=== PATIENT | female | born 1945 | race Two or more races ===

== ENCOUNTER 2017-03-24 21:41 | Outpatient (CLI) | END 2017-03-24 21:42 | disposition home or self-care (01) | LOC: AMBL 21:41 | PROVIDERS: ATTEND Family Medicine | DX: M25.551 Pain in right hip (principal); W19.XXXA Unspecified fall, initial encounter ==

== ENCOUNTER 2017-10-19 19:55 | Outpatient (CLI) | END 2017-10-19 20:12 | disposition short-term general hospital (02) | LOC: AMBL 19:55 | PROVIDERS: ATTEND Emergency Medicine | DX: K92.0 Hematemesis (principal); C34.90 Malignant neoplasm of unspecified part of unspecified bronchus or lung; J44.9 Chronic obstructive pulmonary disease, unspecified; R53.1 Weakness; R52 Pain, unspecified ==